=== PATIENT | female | born 1990 | race Hispanic/Latino ===

== ENCOUNTER 2021-04-11 22:09 | Emergency (ER) | payer OTHER ==
[2021-04-12 00:01] VITALS: BP 119/81
[2021-04-12] MEDS ORDERED: BENZ-17 PO (02:19)
[2021-04-12] MEDS ORDERED: AZIT250T PO (02:19)
[2021-04-12] MEDS ORDERED: ONDA4TAB10 PO (02:20)
[2021-04-12 02:33] VITALS: BP 122/76
== END 2021-04-12 02:55 | disposition home or self-care (01) ==
LOC: EDH 22:09
DX: U07.1 COVID-19 (principal); J06.9 Acute upper respiratory infection, unspecified; Z79.899 Other long term (current) drug therapy
CPT/HCPCS: 87635; 99283; C9803